=== PATIENT | female | born 1955 | race Caucasian/White ===

== ENCOUNTER 2021-03-26 11:31 | Outpatient (REF) | payer MEDICARE, OTHER, SELFPAY ==
[2021-03-26 12:30] LABS: Influenza A PCR NEGATIVE (Negative); Influenza B PCR NEGATIVE (Negative); Resp Syncy Virus RNA Qual PCR NEGATIVE (Negative); SARS COV2 PCR INHOUSE NEGATIVE (Negative)
== END 2021-03-26 11:32 | disposition home or self-care (01) ==
LOC: HO.LNP 11:31
PROVIDERS: Visit Provider Family Medicine
DX: Z20.822 Contact with and (suspected) exposure to COVID-19 (principal); B34.9 Viral infection, unspecified
CPT/HCPCS: 0241U

== ENCOUNTER 2021-04-22 13:56 | Outpatient (REF) | payer MEDICARE, OTHER, SELFPAY ==
[2021-04-22 18:44] LABS: MANUAL DIFF FLAG NO
[2021-04-22 18:49] LABS: Basophils Absolute Auto 0.1 X10*3/uL (0.0-0.2); Basophils Percent Auto 0.6 % (0-2); Eosinophils Absolute Auto 0.1 X10*3/uL (0.0-0.4); Eosinophils Percent Auto 0.8 % (0-4); Hematocrit 39.9 % (37-47); Hemoglobin 13.4 g/dl (12.0-16.0); Imm Gran Abs Auto 0.02 X10*3/uL (0.00-0.03); Imm Gran Pct Auto 0.3 % (0.0-0.4); Lymphocytes Absolute Auto 2.4 X10*3/uL (1.2-4.9); Lymphocytes Percent Auto 31.5 % (20-40); Mean Corpuscular HGB Conc 33.6 g/dl (31.0-35.0); Mean Corpuscular Hemoglobin 30.7 pg (27.0-33.0); Mean Corpuscular Volume 91.3 fL (80-98); Mean Platelet Volume 10.1 fL (9.4-12.3); Monocytes Absolute Auto 0.6 X10*3/uL (0.1-1.2); Monocytes Percent Auto 7.6 % (2-11); Neutrophils Absolute Auto 4.6 X10*3/uL (2.0-8.3); Neutrophils Percent Auto 59.2 % (45-73); Platelet Count 307 X10*3/uL (160-400); Red Blood Count 4.37 X10*6/uL (4.20-5.50); Red Cell Distribution Width 12.7 % (11.0-16.0); White Blood Count 7.7 X10*3/uL (4.8-10.8)
[2021-04-22 19:11] LABS: Alanine Aminotransferase 17 U/L (0-31); Albumin Level 4.2 g/dL (3.5-5.0); Alkaline Phosphatase 84 U/L (39-117); Anion Gap 13 (12-20); Aspartate Amino Transferase 19 U/L (5-31); Bilirubin Total 0.3 mg/dL (0.0-1.0); Blood Urea Nitrogen 10 mg/dL (9-16); C Reactive Protein 0.17 mg/dL (< or = 0.50); Calcium 9.6 mg/dL (8.4-10.2); Carbon Dioxide 27 mmol/L (22-29); Chloride 104 mmol/L (96-108); Estimated Glomerular Filt Rate > 60; Glucose Random 89 mg/dL (60-115); Iron 83 mcg/dL (30-160); Percent Iron Saturation 29 % (15-50); Potassium 3.7 mmol/L (3.3-5.1); Sodium 140 mmol/L (135-145); Total Iron Binding Capacity 290 mcg/dL (228-428); Total Protein 6.9 g/dL (6.5-8.0); Unsaturated Iron Binding 207 ug/dL
[2021-04-22 19:32] LABS: Erythrocyte Sedimentation Rate 5 MM/HR (0-20); Ferritin 151 ng/mL (10-250); Thyroid Stimulating Hormone 1.55 uIU/mL (0.32-4.0); Vitamin D 25-OH Total 52.8 ng/mL (>30)
[2021-04-22 19:42] LABS: Folate 13.1 ng/mL (> or = 4.0); Vitamin B12 398 pg/mL (200-900)
== END 2021-04-22 13:57 | disposition home or self-care (01) ==
LOC: HO.MANLDS 13:56
PROVIDERS: PCP Physician Assistant; Visit Provider Physician Assistant
DX: R53.83 Other fatigue (principal)
CPT/HCPCS: 36415; 80053; 82306; 82607; 82728; 82746; 83540; 84439; 84443; 85025; 85652; 86140

== ENCOUNTER 2023-03-23 09:40 | Outpatient (REF) | payer MEDICARE, OTHER, SELFPAY ==
[2023-03-23 13:05] LABS: MANUAL DIFF FLAG NO
[2023-03-23 13:26] LABS: Basophils Percent Auto 0.7 % (0-2); Eosinophils Absolute Auto 0.1 X10*3/uL (0.0-0.4); Eosinophils Percent Auto 1.8 % (0-4); Hemoglobin 13.8 g/dl (12.0-16.0); Imm Gran Abs Auto 0.01 X10*3/uL (0.00-0.03); Imm Gran Pct Auto 0.2 % (0.0-0.4); Lymphocytes Absolute Auto 1.9 X10*3/uL (1.2-4.9); Lymphocytes Percent Auto 35.1 % (20-40); Mean Corpuscular HGB Conc 32.9 g/dl (31.0-35.0); Mean Corpuscular Hemoglobin 30.5 pg (27.0-33.0); Mean Corpuscular Volume 92.7 fL (80.0-98.0); Mean Platelet Volume 10.5 fL (9.4-12.3); Monocytes Absolute Auto 0.5 X10*3/uL (0.1-1.2); Monocytes Percent Auto 9.5 % (2-11); Neutrophils Absolute Auto 2.9 x10*3/uL (2.0-8.3); Neutrophils Percent Auto 52.7 % (45-73); Platelet Count 285 X10*3/uL (160-400); Red Blood Count 4.53 X10*6/uL (4.20-5.50); Red Cell Distribution Width 12.9 % (11.0-16.0); White Blood Count 5.5 X10*3/uL (4.8-10.8)
[2023-03-23 14:00] LABS: Alanine Aminotransferase 15 U/L (0-31); Albumin Level 4.1 g/dL (3.5-5.0); Alkaline Phosphatase 78 U/L (39-117); Anion Gap 11 (12-20); Aspartate Amino Transferase 21 U/L (5-31); Bilirubin Total 0.3 mg/dL (0.0-1.0); Blood Urea Nitrogen 14 mg/dL (9-16); Calcium 9.7 mg/dL (8.4-10.2); Carbon Dioxide 29 mmol/L (22-29); Chloride 107 mmol/L (96-108); Cholesterol 201 mg/dL (<200); Estimated Glomerular Filt Rate > 60; Glucose Random 83 mg/dL (60-115); HDL Cholesterol 79 mg/dL (>40); LDL Cholesterol Calculated 111 mg/dL (<100); Potassium 4.5 mmol/L (3.3-5.1); Sodium 142 mmol/L (135-145); Triglycerides 59 mg/dL (<150)
[2023-03-23 14:03] LABS: Vitamin D 25-OH Total 111.1 ng/mL (>30)
== END 2023-03-23 09:41 | disposition home or self-care (01) ==
LOC: HO.MANLDS 09:40
PROVIDERS: Visit Provider Internal Medicine
DX: Z00.00 Encounter for general adult medical examination without abnormal findings (principal); M85.80 Other specified disorders of bone density and structure, unspecified site; E78.5 Hyperlipidemia, unspecified
CPT/HCPCS: 36415; 80053; 80061; 82306; 85025

== ENCOUNTER 2023-10-12 12:10 | Outpatient (REF) | payer MEDICARE, OTHER, SELFPAY ==
[2023-10-12 17:19] LABS: MANUAL DIFF FLAG NO
[2023-10-12 17:27] LABS: Basophils Absolute Auto 0.1 X10*3/uL (0.0-0.2); Basophils Percent Auto 0.7 % (0-2); Eosinophils Absolute Auto 0.1 X10*3/uL (0.0-0.4); Eosinophils Percent Auto 0.8 % (0-4); Hematocrit 43.5 % (37.0-47.0); Imm Gran Abs Auto 0.01 X10*3/uL (0.00-0.03); Imm Gran Pct Auto 0.1 % (0.0-0.4); Lymphocytes Absolute Auto 2.4 X10*3/uL (1.2-4.9); Lymphocytes Percent Auto 33.9 % (20-40); Mean Corpuscular HGB Conc 32.2 g/dl (31.0-35.0); Mean Corpuscular Volume 90.2 fL (80.0-98.0); Mean Platelet Volume 10.3 fL (9.4-12.3); Monocytes Absolute Auto 0.6 X10*3/uL (0.1-1.2); Monocytes Percent Auto 7.8 % (2-11); Neutrophils Absolute Auto 4.1 x10*3/uL (2.0-8.3); Neutrophils Percent Auto 56.7 % (45-73); Platelet Count 322 X10*3/uL (160-400); Red Blood Count 4.82 X10*6/uL (4.20-5.50); Red Cell Distribution Width 12.7 % (11.0-16.0); White Blood Count 7.2 X10*3/uL (4.8-10.8)
[2023-10-12 18:10] LABS: Alanine Aminotransferase 15 U/L (0-31); Albumin Level 4.4 g/dL (3.5-5.0); Alkaline Phosphatase 76 U/L (39-117); Anion Gap 11 (12-20); Aspartate Amino Transferase 19 U/L (5-31); Bilirubin Total 0.5 mg/dL (0.0-1.0); Blood Urea Nitrogen 16 mg/dL (9-16); Calcium 9.7 mg/dL (8.4-10.2); Carbon Dioxide 29 mmol/L (22-29); Chloride 104 mmol/L (96-108); Estimated Glomerular Filt Rate > 60; Glucose Random 82 mg/dL (60-115); Magnesium 2.3 mg/dL (1.6-2.6); Potassium 3.8 mmol/L (3.3-5.1); Sodium 140 mmol/L (135-145); Total Protein 7.5 g/dL (6.5-8.0)
[2023-10-12 18:29] LABS: Thyroid Stimulating Hormone 1.69 uIU/mL (0.32-4.0)
[2023-10-14 10:40] LABS: A phagocytophilum IgG <1:64 (<1:64); A phagocytophilum IgM <1:20 (<1:20)
[2023-10-14 20:19] LABS: Lyme Abs Screen <0.90 index
== END 2023-10-12 12:11 | disposition home or self-care (01) ==
LOC: HO.MANLDS 12:10
PROVIDERS: Visit Provider Physician Assistant
DX: G25.2 Other specified forms of tremor (principal)
CPT/HCPCS: 36415; 80053; 83735; 84439; 84443; 85025; 86617; 86618; 86666

== ENCOUNTER 2025-05-27 09:42 | Outpatient (REF) | payer MEDICARE, OTHER, SELFPAY ==
--- OUTSIDE RECORDS SUMMARY | 2025-05-27 11:08 | XMS_ITS | Clinical Summary ---
Author Organization [facility] Address [address] [facility] [address] [place] [id number] Phone Care Team Providers Care Shipping Order Clerk Name Role Phone Jose Malone Primary Care Provider [phone] Allergies Active Allergy Reactions Criticality Noted Date Comments Animal Dander 06/18/2024 Codeine 06/18/2024 Other Reaction(s): severe nausea Levofloxacin 06/18/2024 Other Reaction(s): heart race Methocarbamol-Aspirin 06/18/2024 Other Reaction(s): rash whole body Prednisone 06/18/2024 Other Reaction(s): could not function hands shaking and blurred vision Medications loratadine (CHILDREN'S CLARITIN) 5 mg chewable tablet Take 5 mg by mouth as needed. 4 Active fluticasone propionate (FLONASE) 50 mcg/actuation nasal spray 1 spray by Nasal route daily. Active ibuprofen (ADVIL) 200 MG tablet Take 400 mg by mouth. PRN 4 Active cholecalciferol (VITAMIN D3) 25 MCG (1,000 unit) tablet Take 50 mcg by mouth daily. Active magnesium L-lactate (MAGTAB) 84 mg TbER Take 84 mg by mouth daily. Active multivitamin with folic acid 400 mcg tablet Take 1 tablet by mouth daily. Active VITAMIN B COMPLEX ORAL Take 1 capsule by mouth daily. Active TURMERIC ORAL Take 1 capsule by mouth daily. Active MULTIVITAMIN ORAL Take 1 capsule by mouth daily. Active escitalopram oxalate (LEXAPRO) 5 MG tablet Take 5 mg by mouth daily. Active carbidopa-levodopa (SINEMET) 25-100 mg per tabletIndications: Parkinson's disease without dyskinesia or fluctuating manifestations Take 0.5 tablets by mouth 2 (two) times a day for 14 days, THEN 1 tablet 2 (two) times a day. 60 tablet 6 5 03/25/20 26 Active propranoloL (INDERAL LA) 80 mg 24 hr capsule Take 1 capsule (80 mg total) by mouth daily. 30 capsule 5 5 05/07/20 25 Discontin ued(No longer taking) Encounters Date Type Department Care Team Description 05/13/[address] [facility] Department of Neurology [address] [place] [address], [address] [facility], [address] [place] [address] Candice Guerin LICSW 05/07/2025 2:[address] [facility] Department of Neurology [address] [facility], 8th Floor, [address] [place] [address] Jennifer Dunbar MD Parkinson's disease without dyskinesia or fluctuating manifestations (Primary Dx) 03/20/[address] [facility] Department of Neurology [address] [facility], 8th Floor, [address] [place] [address] Candice Guerin LICSW 03/13/[address] [facility] Department of Neurology [address] [facility], 8th Floor, [address] [place] [address] Candice Guerin LICSW Social work appointment 03/11/2025 9:30 AM EDT Office Visit [facility] Department of Neurology [address] [facility], 8th Floor, [address] [place] [address] Jennifer Dunbar MD Parkinson's disease without dyskinesia or fluctuating manifestations (Primary Dx) from Last 3 Months Social History Tobacco Use Types Packs/Day Years Used Date Smoking Tobacco: Never Smokeless Tobacco: Never Tobacco Cessation:Counseling Given: Not Answered Education Answer Date Recorded Are you interested in more education? Not on betzy e 03/26/2024 Are you concerned about learning? Not on file 03/26/2024 No 03/26/2024 No 03/26/2024 Digital Access Answer Date Recorded No 03/26/2024 No 03/26/2024 Reliable internet access at home? Not on file 03/26/2024 Device with a working camera? Not on file Comments No Sex and Gender Information Value Date Recorded Sex Assigned at Not on file Legal Sex Female 9:54 PM EDT Gender Identity Not on file Sexual Orientation Not on file Last Filed Vital Signs Vital Sign Reading Time Taken Comments Blood Pressure 138/83 03/11/2025 9:14 AM EDT Pulse 80 03/11/2025 9:14 AM EDT Temperature 36.9 C (98.5 F) 03/11/2025 9:14 AM EDT Respiratory Rate - - Oxygen Saturation 97% 03/11/2025 9:14 AM EDT Inhaled Oxygen Concentration - - Weight 72 kg (158 lb 12.8 oz) 03/11/2025 9:14 AM EDT Height 161.3 cm (5' 3.5 ) 03/11/2025 9:14 AM EDT Body Mass Index 27.69 03/11/2025 9:14 AM EDT Plan of Treatment Upcoming Encounters Date Type Department Care Team (Late st Contact Info) Description 08/13/2025 1:[address] [facility] Department of Neurology [address] [facility], 8th Floor, [address] [place] [address] Jennifer Dunbar MD [address] [place] [phone] [email or web address] Health Maintenance Due Date Last Done Comments Adult Td,Tdap Booster 1956 LIPID PANEL 1956 DEPRESSION SCREENING 1968 HEPATITIS C SCREENING 02/26/1974 SCREENING FOR DIABETES 02/26/1991 MAMMOGRAM 1996 COLOGUARD 02/26/2001 COLONOSCOPY 02/26/2001 COLORECTAL CANCER SCREENING 02/26/2001 FIT TEST 02/26/2001 FOBT 02/26/2001 SIGMOIDOSCOPY 02/26/2001 VIRTUAL COLONOSCOPY 02/26/2001 PNEUMOCOCCAL VACCINES (50+ y ears) (1 of 1 - PCV) 02/26/2006 ZOSTER VACCINES (1 of 2) 02/26/2006 OSTEOPOROSIS SCREENING INITI AL (ONE-TIME) 02/26/2021 INFLUENZA VACCINE (#1) 2025 COVID-19 VACCINE ( - 2024-2 6 season) 2025 RSV VACCINE (1 - 1-dose 75+ series) 02/26/2031 SMOKING STATUS SCREENING (On ce After 26 Yrs) Completed 03/11/2025 HEPATITIS A VACCINES Aged Out No long er eligible based on patient's age to complete this topic HIB VACCINES Aged Out No longer eligi ble based on patient's age to complete this topic MENINGOCOCCAL VACCINES (ACWY) Aged Out No longer eligible based on patient's age to complete this topic MENINGOCOCCAL VACCINES (B) Aged Out N o longer eligible based on patient's age to complete this topic Medical Devices Not on file Insurance MEDICARE PART A & B [facility] [employer] MEDICARE SUPPLEMENT MEDICARE PART A & B [employer] MEDICARE SUPPLEMENT MEDICARE PART A & B [employer] MEDICARE SUPPLEMENT MEDICARE PART A & B [facility] [employer] MEDICARE SUPPLEMENT MEDICARE PART A & B [facility] [employer] MEDICARE SUPPLEMENT MEDICARE PART A & B [facility] [employer] MEDICARE SUPPLEMENT Care Teams Shipping Order Clerk Relationship Specialty Start Date End Date Jose Malone DO [email or web address] PCP - General Internal Medicine 03/26/24 Additional Source Comments The information contained in this document represents components of the legal health record. It is not the complete legal health record.[facility]
--- OUTSIDE RECORDS SUMMARY | 2025-05-27 11:08 | XMS_ITS | Continuity of Care Document ---
Author Organization [facility] Address [address] [facility] [place] [address] [place] [address] Assessment No assessment recorded. Plan of Treatment Reminders Order Date Submit Date Provider Last Modified By Organization Details Last Modified Time Details Appointments ANNUAL EXAM 2024 09:00A M SURYA VIDALES Not available Not available Not available ANNUAL EXAM 2025 09:00A M SURYA VIDALES Not available Not available Not available Lab CMP, serum or plasma 2024 025 [facility], [address] [place] [address], [id number], 05/27/2025 09:32:59 CBC w/ auto diff 2024 025 [facility], [address] [place] [address], [id number], 05/27/2025 09:32:59 TSH + free T4, serum 2024 025 [facility], [address] [place] [address], [id number], 05/27/2025 09:32:59 hemoglobi n A1c, QN, blood 2024 025 [facility], [address] [place] [address], [id number], 05/27/2025 09:32:59 lipid panel, blood 2024 025 [facility], [address] [place] [address], [id number], 05/27/2025 09:32:59 vitamin D, 25-hydrox y, total, serum 2024 025 [facility], [address] [place] [address], [id number], 05/27/2025 09:32:59 Referral None recorded. Procedures None recorded. Surgeries None recorded. Imaging None recorded. Medication Orders None recorded. Patient TargetsNo targets recorded. Patient InstructionsNo instructions recorded. Reason for Referral None Reported. Problems Name Problem SNOMED Code Status Onset Date Resolution Date Notes Provider Name and Address Organization Details Recorded Time Cholecyst itis 85816060 Active 2019 Marilu bowers [facility] 0 16:46:07 History of chest pain 386630742686 75805 Active 2019 Marilu bowers [facility] 0 08:30:06 Inflammat ion of sacroilia c joint 80195637 Active 2021 Jose Malone, DO [address] [place] [address], [phone], [facility] 2 11:32:03 Osteopeni a 190037669 Active 2022 Jose Malone DO [address] [place] [address], [phone], [facility] 3 09:32:06 Sleep apnea 80317387 Active 2022 Jose Malone DO [address] [place] [address], [phone], [facility] 3 14:13:26 Resting tremor 57823519 Active 2023 SURYA VIDALES [address] [place] [address], [address], [facility] 4 11:47:01 Blurring of visual image 680827799 Active 2023 SURYA VIDALES [address] [place], [address], [facility] 4 11:47:11 Parkinson ism 76175342 Active 2023 SURYA VIDALES [address] [place] [address], [address], [facility] 5 11:01:17 Spinal stenosis of lumbar region 47112339 Active 2023 SURYA VIDALES [address] [place] [address], [address], [facility] 4 15:09:51 Tremor 14093798 Active 2023 SURYA VIDALES [address] [place] [address], [address], [facility] 4 09:38:24 Degenerat meg lumbar spinal stenosis 083441645 Active 2023 SURYA VIDALES [address] [place] [address], [address], [facility] 4 10:05:31 Pain of bilateral hip joints 712334468905 88694 Active 2023 SURYA VIDALES [address] [place] [address], [address], [facility] 4 09:48:04 Thoracic back pain 312019946 Active 2023 SURYA VIDALES [address] [place] [address], [address], [facility] 4 09:46:56 Essential tremor 061652993 Active 2023 SURYA VIDALES [address] [place] [address], [address], [facility] 5 10:14:34 Anxiety 83601276 Active 2024 SURYA VIDALES [address] [place] [address], [address], [facility] 5 14:05:05 Problem Notes None recorded. Procedures Surgical History Date Name Laterality Status Provider Name and Address Organization Details Recorded Time 0 Date of Last Pap Smear completed Jodie Lb [facility] 05/06/2020 09:07:15 9 Most Recent Mammogram completed [facility] 12/31/2019 16:45:22 3 colonoscopy completed [facility] 01/01/2020 08:33:47 Unlisted procedure shoulder completed [facility] 12/31/2019 16:48:19 Imaging Results None recorded. Procedure Notes None recorded. Medical Equipment None Reported. Allergies Allergen ID Allergen Name Allergen Category Reaction Reaction Severity Criticality Documentation Date Start Date Code Code System Note Provider Name and Address Organization Details Recorded Time 3914 Levaquin medicatio n Not available Not available Not available 01/01/202004506 2 RxNorm Gi upset , Heart racin [facility] 08:13[facility]23 3915 Robaxin medicatio n rash Not available Not available 01/01/2020 5 RxNorm [facility] 0 08:13:40 3916 Biaxin medicatio n Not available Not available Not available 01/01/202089095 9 RxNorm GI upset [facility] 0 08:14:02 3917 acetamino phen / oxycodone medicatio n vomiting Not available Not available 01/01/202060969 3 RxNorm Room spinn ing Marilucayetano [facility] 0 08:14:24 3919 codeine medicatio n dizziness vomiting Not available Not available Not available 01/01/2020 2670 RxNorm [facility] 0 10:33:17 3920 prednison e medicatio n dizziness vomiting Not available Not available Not available 01/01/2020 8640 RxNorm [facility] 0 10:33:46 Medications Name Sig Start Date Stop Date Status Note LastModified by Organization Details LastModified Time tizanidine 2 mg tablet TAKE 1 TABLET BY MOUTH TWICE DAILY FOR 14 DAYS 04/17 completed Not Available Not Available Not Available ofloxacin 0.3 % eye drops 03/01 completed Not Available Not Available Not Available tizanidine 4 mg tablet TAKE 1 TABLET BY MOUTH EVERY 6 HOURS DIRECTED 04/17 completed Not Available Not Available Not Available propranolol ER 60 mg capsule,24 hr,extended release 11/14 completed Not Available Not Available Not Available topiramate 25 mg tablet TAKE 1 TABLET BY MOUTH EVERY DAY FOR 7 DAYS 02/06 completed Not Available Not Available Not Available ondansetron 8 mg disintegrat ing tablet TAKE 1 TABLET BY MOUTH EVERY 8 HOURS IF NEEDED FOR NAUSEA FOR 7 DAYS 04/22 completed Not Available Not Available Not Available oxycodone-a cetaminophe n 5 mg-325 mg tablet 04/22 completed Not Available Not Available Not Available propranolol 10 mg tablet take one tab TID 08/07 completed Not Available Not Available Not Available ropinirole 0.25 mg tablet TAKE 1 TABLET BY MOUTH EVERY DAY. DO NOT DRIVE IF DROWSY 01/08 completed Not Available Not Available Not Available meclizine 25 mg tablet TAKE 1 TABLET BY MOUTH TWICE DAILY NEEDED FOR MOTION SICKNESS 04/22 completed Not Available Not Available Not Available propranolol ER 80 mg capsule,24 hr,extended release 05/27 completed Not Available Not Available Not Available methylpredn isolone 4 mg tablets in a dose pack TAKE DIRECTED ON PACKAGE FOR 6 DAYS WITH FOOD 01/08 completed Not Available Not Available Not Available carbidopa 25 mg-levodopa 100 mg tablet TAKE 1/2 TABLET BY MOUTH TWICE DAILY FOR 14 DAYS THEN TAKE 1 TABLET BY MOUTH TWICE DAILY active Not Available Not Available No t Available ipratropium bromide 21 mcg (0.03 %) nasal spray USE 2 SPRAYS IN EACH NOSTRIL TWICE DAILY 05/27 completed Not Available Not Available Not Available amoxicillin 875 mg-potassiu m clavulanate 125 mg tablet TAKE 1 TABLET BY MOUTH TWICE DAILY FOR 10 DAYS 10/11 completed Not Available Not Available Not Available tobramycin 0.3 %-dexametha sone 0.1 % eye drops,suspe nsion SHAKE LIQUID AND INSTILL 1 DROP IN BOTH EYES THREE TIMES DAILY FOR 5 DAYS THEN STOP 05/27 completed Not Available Not Available Not Available magnesium 200 mg tablet Take 2 tablets every day by oral route. 05/27 completed Not Available Not Available Not Available Allergy Relief (loratadine ) 10 mg tablet Take 1 tablet every day by oral route. active Not Available Not Available No t Available escitalopra m 5 mg tablet TAKE 1 TABLET BY MOUTH EVERY DAY DIRECTED 05/27 completed Not Available Not Available Not Available Vitamin D 6000 iu qd active Not Available Not Available No t Available Tumersaid active Not Available Not Pam ilable Not Available Vitals Date Recorded Body height Body mass index (BMI) Body weight Oxygen saturation Oxygen saturation in Arterial blood by Pulse oximetry Heart rate Systolic And Diastolic Provider Name and Address Organization Details Last Updated DateTime 167.64 cm 25.2 kg/m2 00951.4 1 g 96 % 96 % 67 /min 136/70 mm[Hg] Alexandria Cooper [facility] 5 09:02:48 Social History Question Answer Notes LastModified by Organizat ion Details LastModified Time Tobacco Smoking Status [facility] [place] 01/01/2020 08:31:54 What Was The Date Of Your Most Recent Tobacco Screening? 05/27/2025 [email or web address] Information not available 05/27/2025 Sex: Unknown Functional Status Question Answer Note LastModified by Organization D etails LastModified Time Do you or have you ever used any other forms of tobacco or nicotine? No [email or web address] Information not available 03/01/2023 Mental Status None recorded. Family History Relationship Description Onset Age of this Age Resolved Age Notes LastModified by Organization Details LastModified Time Mother Hypertensive disorder sbucko Not available 2019 16:57:03 Mother Hyperthyroid ism sbucko Not available 2019 16:57:16 Mother Degenerative disorder of macula sbucko Not available 2019 16:57:39 Mother Poor short-term memory sbucko Not available 2019 16:58:00 Father Coronary arterioscler osis sbucko Not available 2019 16:58:11 Father Cerebrovascu lar accident sbucko Not available 16:58:21 Father Rupture of aorta sbucko Not available 2019 16:58:34 Sister Arthritis sbucko Not available 01/01/2020 08:15:25 Sister Breast lump Pre cancer sbucko Not available 01/01/2020 08:16:17 Sister Hypertensive disorder sbucko Not available 2019 08:16:38 Sister Developmenta l delay sbucko Not available 2019 08:16:55 Sister Sciatica sbucko Not available 0 01/01/2020 08:17:08 Brother Hypertensive disorder sbucko Not available 2019 08:17:21 Brother Spinal stenosis sbucko Not available 2019 08:17:43 Brother Hypercholest erolemia sbucko Not available 2019 08:18:15 Medical History No medical history recorded. Gynecological History Statement/Question Response Date of Last Pap Smear 04/23/2020 Most Recent Mammogram 05/23/2019 Obstetrics History GPAL:G 0 P 0 0 0 0 Immunizations Vaccine Type Date Status Note Provider Nam e and Address Organization Details Recorded Time COVID-19, mRNA, LNP-S, PF, 100 mcg/0.5mL dose or 50 mcg/0.25mL dose 10/08/[address] [facility] 04/22/2021 13:41:12 COVID-19, mRNA, LNP-S, PF, 100 mcg/0.5mL dose or 50 mcg/0.25mL dose 11/05/2020 completed Candida bowers [place] [facility] 04/22/2021 13:41:21 Past Encounters Encounter ID Performer Location Encounter Start Date Encounter Closed Date Diagnosis/Indication Diagnosis SNOMED-CT Code Diagnosis ICD10 Code Diagnosis IMO Codes Diagnosis Note [id number] Jose Malone DO [facility] [address] [facility],[place] [address] 05/27/2025 08:46:58 05/27/2025 09:33:07 Depression screening 775366764 Z13.31 0 negative General ex amination of patient 749808093 Z00.00 538020 BP is excellent At increas ed risk for falls 325188404 Z91.81 3704019 mild Health Concerns Section Related Observation LastModified by Organization Detai ls LastModified Time None Recorded Concern Status LastModified by Organization Details LastModified Time None Recorded Payers Encounter Date Sequence Insurance Name Policy Number Policy Means Covered Member ID Means Member ID Guarantor Name 05/27/2025 2 [facility] ([facility] [id number] Jarrod Parra [id number] Gina Parra 05/27/2025 1 [place]IC[place]: [employer] Gina Parra [id number] Gina Parra Notes Date Note Type Note Provider Name a nd Address Organization Details Recorded Time 5 text/html Annual WellnessReported by PatientSocial/Behavio ral HistoryFor diet and nutrition, patient reportshealthy diet,discussed vitamin and supplement use,discussed portion control,discussed maintaining calcium balance, anddiscussed diet improvement. For fracture risk, patient reportsno history of fractures,no recent explained fracture,no sudden unexplained fractures, andno previous musculoskeletal injuries. For physical activity, patient reportsexercises on a regular basis,recent increase in physical activity, andgood physical condition. For additional lifestyle factors, patient reportsno tobacco useanddrinks alcohol (mild-moderate).Menta l Status:For depression risk, patient reportsnever feels sad, empty, or tearful,no loss of interest in activities,no significant changes in weight,no sleep disturbances or insomnia,no agitation,no loss of energy,no feelings of worthlessness or guilt,no thoughts of suicide,no history of depression, andno history of mood disorders.Functional AbilityFor hearing, patient reportsno loss of hearing. For vision, patient reportsno vision problems. the patient reports that she is doing well overallshe has been doing the PT and an exercise routine at the for Parkinson's patient the patient reports that she talked to the movement specialist > she agreed to trial off the levadopa and see if she notices a difference if her symptomsthey talked about using it as needed which she is going to try the patient has significant SURYA VIDALES [address] [facility], [place], [address], [facility] 05/27/2025 09:35:53 OBGyn Episode No OBEpisode recorded.
--- OUTSIDE RECORDS SUMMARY | 2025-05-27 11:08 | XMS_ITS | Data Portability ---
Author Organization [facility], Telehealth Patient Home Address [address] [place] [address] Assessment No assessment recorded. Plan of Treatment Reminders Order Date Submit Date Provider Last Modified By Organization Details Last Modified Time Details Appointments ANNUAL EXAM 2024 09:00A SURYA REDMAN Not available Not available Not available ANNUAL EXAM 2025 09:00A M SURYA VIDALES Not available Not available Not available Lab CMP, serum or plasma 2024 025 [facility], [address] [place] [address], [id number], 05/27/2025 09:32:59 CBC w/ auto diff 2024 025 [facility], [address] [place] [address], [id number], 05/27/2025 09:32:59 TSH + free T4, serum 2024 025 [facility], [address] [place] [address], [id number], 05/27/2025 09:32:59 hemoglobi n A1c, QN, blood 2024 025 [facility], [address] [place] [address], [id number], 05/27/2025 09:32:59 lipid panel, blood 2024 025 [facility], [address] [place] [address], [id number], 05/27/2025 09:32:59 vitamin D, 25-hydrox y, total, serum 2024 025 [facility], [address] [place] [address], [id number], 05/27/2025 09:32:59 Referral None recorded. Procedures None recorded. Surgeries None recorded. Imaging None recorded. Medication Orders None recorded. Patient TargetsNo targets recorded. Patient InstructionsNo instructions recorded. Reason for Referral None Reported. Problems Name Problem SNOMED Code Status Onset Date Resolution Date Notes Provider Name and Address Organization Details Recorded Time Cholecyst itis 13275214 Active 2019 Marilu bowers [facility] 0 16:46:07 History of chest pain 372771409537 71994 Active 2019 Marilu bowers [facility] 0 08:30:06 Inflammat ion of sacroilia c joint 73264069 Active 2021 Jose Malone, [address], [address], [facility] 2 11:32:03 Osteopeni a 941194770 Active 2022 Jose Malone DO [address] [place] [address], [address], [facility] 3 09:32:06 Sleep apnea 51140900 Active 2022 Jose Malone DO [address] [place] [address], [address], [facility] 3 14:13:26 Resting tremor 75973743 Active 2023 SURYA VIDALES [address] [place] [address], [address], [facility] 4 11:47:01 Blurring of visual image 665178860 Active 2023 SURYA VIDALES [address] [place], [address], [facility] 4 11:47:11 Parkinson ism 44671206 Active 2023 SURYA VIDALES [address] [place], [address], [facility] 5 11:01:17 Spinal stenosis of lumbar region 69736303 Active 2023 SURYA VIDALES [address] [place], [address], [facility] 4 15:09:51 Tremor 65156517 Active 2023 SURYA VIDALES [address] [place] [address], [address], [facility] 4 09:38:24 Degenerat meg lumbar spinal stenosis 419952832 Active 2023 SURYA VIDALES [address] [place] [address], [address], [facility] 4 10:05:31 Pain of bilateral hip joints 552555255996 24751 Active 2023 SURYA VIDALES [address] [place] [address], [address], [facility] 4 09:48:04 Thoracic back pain 207244405 Active 2023 SURYA VIDALES [address] [place] [address], [address], [facility] 4 09:46:56 Essential tremor 600594910 Active 2023 SURYA VIDALES [address] [place] [address], [address], [facility] 5 10:14:34 Anxiety 04884683 Active 2024 SURYA VIDALES [address] [place] [address], [address], [facility] 5 14:05:05 Problem Notes None recorded. Procedures Surgical History Date Name Laterality Status Provider Name and Address Organization Details Recorded Time 0 Date of Last Pap Smear completed Jodie Lb [facility] 05/06/2020 09:07:15 9 Most Recent Mammogram completed [facility] 12/31/2019 16:45:22 3 colonoscopy completed [facility] 01/01/2020 08:33:47 Unlisted procedure shoulder completed [facility] 12/31/2019 16:48:19 Imaging Results None recorded. Procedure Notes None recorded. Medical Equipment None Reported. Allergies Allergen ID Allergen Name Allergen Category Reaction Reaction Severity Criticality Documentation Date Start Date Code Code System Note Provider Name and Address Organization Details Recorded Time 3914 Levaquin medicatio n Not available Not available Not available 01/01/202007647 2 RxNorm Gi upset , Heart racin g [facility] 0 08:13:23 3915 Robaxin medicatio n rash Not available Not available 01/01/2020 5 RxNorm Mar[address] [facility] 0 08:13:40 3916 Biaxin medicatio n Not available Not available Not available 01/01/202090707 9 RxNorm GI upset Marilucayetano [facility] 0 08:14:02 3917 acetamino phen / oxycodone medicatio n vomiting Not available Not available 01/01/202008718 3 RxNorm Room spinn ing Marilucayetano [facility] 0 08:14:24 3919 codeine medicatio n dizziness vomiting Not available Not available Not available 01/01/2020 2670 RxNorm Marilucayetano [facility] 0 10:33:17 3920 prednison e medicatio n dizziness vomiting Not available Not available Not available 01/01/2020 8640 RxNorm Marilucayetano [facility] 0 10:33:46 Medications Name Sig Start Date [...] height Body mass index (BMI) Body weight Heart rate Oxygen saturation Oxygen saturation in Arterial blood by Pulse oximetry Systolic And Diastolic Provider Name and Address Organization Details Last Updated DateTime 5 167.64 cm 25.9 kg/m2 78593.5 8 g 74 /min 97 % 97 % 140/88 mm[Hg] Gia Phelps [facility] 5 10:07:23 Date Recorded Body height Body mass index (BMI) Body weight Heart rate Oxygen saturation Oxygen saturation in Arterial blood by Pulse oximetry Systolic And Diastolic Provider Name and Address Organization Details Last Updated DateTime 5 167.64 cm 25.8 kg/m2 07083.7 8 g 78 /min 97 % 97 % 130/80 mm[Hg] Siomara Brink [facility] 5 09:46:47 Date Recorded Body height Body mass index (BMI) Body weight Heart rate Oxygen saturation Oxygen saturation in Arterial blood by Pulse oximetry Systolic And Diastolic Provider Name and Address Organization Details Last Updated DateTime 5 167.64 cm 25.7 kg/m2 62663.9 1 g 65 /min 97 % 97 % 144/78 mm[Hg] Gia Phelps [facility] 5 09:35:22 Date Recorded Body height Body mass index (BMI) Body weight Heart rate Oxygen saturation Oxygen saturation in Arterial blood by Pulse oximetry Systolic And Diastolic Provider Name and Address Organization Details Last Updated DateTime 5 167.64 cm 25.7 kg/m2 65216.1 9 g 66 /min 98 % 98 % 128/70 mm[Hg] SURYA VIDALES [address] [place], [address], [facility] 10:23:28 Date Recorded Body height Body mass index (BMI) Body weight Oxygen saturation Oxygen saturation in Arterial blood by Pulse oximetry Heart rate Systolic And Diastolic Provider Name and Address Organization Details Last Updated DateTime 167.64 cm 25.2 kg/m2 16747.4 1 g 96 % 96 % 67 /min 136/70 mm[Hg] Alexandria Cooper [facility] 09:02:48 Social History Question Answer Notes LastModified by Organizat ion Details LastModified Time Tobacco Smoking Status Never [facility]/01/2020 08:31:54 What Was The Date Of Your Most Recent Tobacco Screening? 05/27/2025 [email or web address] Information not available 05/27/2025 Sex: Unknown Functional Status Question Answer Note LastModified by Organization D etails LastModified Time Do you or have you ever used any other forms of tobacco or nicotine? No [email or web address] Information not available 03/01/2023 Mental Status None [...] dose or 50 mcg/0.25mL dose 10/08/2020 completed Candida bowers [facility] 04/22/2021 13:41:12 COVID-19, mRNA, LNP-S, PF, 100 mcg/0.5mL dose or 50 mcg/0.25mL dose 11/05/2020 completed Candida bowers [facility] 04/22/2021 13:41:21 Past Encounters Encounter ID Performer Location Encounter Start Date Encounter Closed Date Diagnosis/Indication Diagnosis SNOMED-CT Code Diagnosis ICD10 Code Diagnosis IMO Codes Diagnosis Note [id number] Jose Malone [facility] [address] [facility],[place] [address] 01/01/2020 10:21:48 01/01/2020 11:23:34 Inflammation of sacroiliac joint 18405493 M46.1 doing well now, stable may need imaging in the future Low back pain 740636382 M54.5 chronic Sciatica 80374843 M54.31 flare of numbness and tingling into heel of the right side [id number] Jose Malone [facility] [address] [facility], [place] [address] 04/22/2021 13:21:44 04/22/2021 14:33:23 Vertigo 115456309 R42 will start with blood work Fatigue 96868521 R53.83 will fu with lab work up for headaches and fatigue [id number] Jose Malone [facility] [address] [facility], [place] [address] 02/17/2022 11:23:16 02/17/2022 12:44:33 Active or passive immunization 172741152 Z23 advised due for Tdap and shingles will consider Adult heal th examination 480729956 Z00.00 Inflammati on of sacroiliac joint 11078960 M46.1 has had treatment surg for the L4-5 and has been good ever since [id number] Jose Malone [facility] [address] [facility], [place] [address] 03/01/2023 08:54:28 03/01/2023 10:16:39 Active or passive immunization 580803461 Z23 advised due for Tdap and shingles will consider Adult heal th examination 272288374 Z00.00 History of chest pain 16 57723923 9515733 Z87.898 gone Inflammati on of sacroiliac joint 74335510 M46.1 has had treatment surg for the L4-5 and has been good ever since Osteopenia 720726210 M85 .80 [id number] Jose Malone [facility] [address] [facility], [place] [address] 10/12/2023 11:03:47 10/12/2023 15:00:34 Inflammation of sacroiliac joint 28284076 M46.1 stable Resting tremor 94885691 G25.2 add work up for lab work r/o and also needs MRI brain and spine Blurring o f visual image 045029923 H53.8 will fu with eye doctor next week for exam [id number] Jose Malone [facility] [address] [facility], ite [facility] [place] [address] 11/08/2023 08:53:22 11/08/2023 10:36:14 Spinal stenosis of lumbar region 00757181 M48.[address] Colindres Resting tremor 13678268 G25.2 add work up for lab work r/o and also needs MRI brain and spine [id number] Jose Malone [facility] [address] [facility], [place] [facility] [place] [address] 01/09/2024 09:18:49 01/09/2024 14:08:25 Depression screening 613034576 Z13.31 0 negative Tremor 49385545 G25.2 will set up with topimax for a week trial to see if it helps some of the symptoms Resting tremor 70298211 G25.2 add work up for lab work r/o and also needs MRI brain and spine Spinal nathanael nosis of lumbar region 35004752 M48.[address] Canales after she talks to neurologis t [id number] Jose Malone [facility] [address] [facility], [place] [address] 02/07/2024 09:43:06 02/08/2024 13:51:11 Resting tremor 54326730 G25.2 add work up for lab work r/o and also needs MRI brain and spine Degenerati ve lumbar spinal stenosis 622983922 M48.061 will have her f/u with Dr. 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 ?still working up neuro causes instead of psychologi terry causes [id number] Jose Malone [facility] [address] [facility] [address], [place] [address] 04/17/2024 09:25:47 04/17/2024 10:52:14 Parkinsonism 53563491 G20.B2 found [address] for an [place] in [place] where she will bewill try getting her scheduled Thoracic back pain 27548 8004 M54.6 will set up with XR thoracichi ps were normal, lumbar spine has been told is not the issues by two neurosurge ons [id number] Jose Malone [facility] [address] [facility] [address],[place] [address] 05/09/2024 09:07:05 05/09/2024 09:44:50 Active or passive immunization 412978300 Z23 advised Adult heal th examination 423670103 Z00.00 BP is excellent [id number] Jose Malone [facility] [address] [facility] [address],[place] [address] 06/25/2024 10:07:48 06/25/2024 10:50:44 Essential tremor 077197907 G25.0 will continue on propranolo l as advisedrec bartolome getting a name the specialist Isaiah ve lumbar spinal stenosis 040985185 M48.061 will have her f/u with Dr. Canales for a surgical consult [id number] Jose Malone [facility] [address] [facility] [address],[place] [address] 08/07/2024 08:59:17 08/07/2024 10:10:25 Degenerative lumbar spinal stenosis 713753305 M48.061 will send out consult for this case for second opinion Essential tremor 6175074 09 G25.0 will fu with her specialist 6 mos [id number] Jose Malone [facility] [address] [facility] [address],[place] [address] 09/07/2024 10:11:33 09/07/2024 10:45:51 Degenerative lumbar spinal stenosis 291792106 M48.061 will send out consult for this case for second opinionpat ient agreed to referral, referral sent Essential tremor 4071486 09 G25.0 waiting on reply from movement specialist after d/c the propranolo l Sleep apnea 16903123 G47 .33 does not tolerate [id number] Jose Malone [facility] [address] [facility], [place] [facility] [place] [address] 10/09/2024 09:56:16 10/09/2024 10:29:59 Screening mammography 49569218 Z12.31 will set up with screening Spinal nathanael nosis of lumbar region 55910588 M48.061 will be having surgery with Dr. Blas Lui Resting tremor 94231890 G25.2 will see if the surgery helps alleviate that tremor [id number] Jose Malone [facility] [address] [facility],[place] [address] 11/14/2024 09:43:46 11/14/2024 10:41:56 Depression screening 148093329 Z13.31 0 negative Degenerati ve lumbar spinal stenosis 324860941 M48.061 pain improved Inflammati on of sacroiliac joint 90486622 M46.1 stable Resting tremor 69115298 G25.2 will fu after movement specialist [id number] Jose Malone [facility] [address],[facility] [place] [address] 12/21/2024 09:55:36 12/21/2024 15:01:30 Depression screening 894331760 Z13.31 0 negative Essential tremor 3071960 09 G25.0 30180 will restart the propranolo l ER 80 mghas it at homeif that isn't helping, with Parkinsonism 24689585 G2 0.B2 ?from neurologys till working that out [id number] Jose Malone [facility] [address] [facility],[place] [address] 02/11/2025 09:35:29 02/11/2025 14:06:39 Parkinsonism 55273792 G20.B2 ?from neurologys till working that out Spinal nathanael nosis of lumbar region 70447212 M48.061 will be having surgery with Dr. Blas Lui Resting tremor 19663737 G25.2 will fu after movement specialist [id number] Jose Malone [facility] [address] [facility], [address] [facility] [place] [address] 03/15/2025 09:27:21 03/15/2025 10:31:40 Depression screening 297378168 Z13.31 0 negative Spinal nathanael nosis of lumbar region 47343615 M48.061 will be having surgery with Dr. Blas Lui Parkinsonism 51065655 G2 0.B2 onapgo is the newer drug for more advanced parkinson' s [id number] [facility] [address] [facility] [address],[place] [address] 04/15/2025 10:11:14 04/15/2025 16:44:48 Depression screening 641533748 Z13.31 0 negative Parkinsonism 97878485 G2 0.B2 onapgo is the newer drug for more advanced parkinson' s [id number] Jose Malone [facility] [address] [facility] [address],[place] [address] 05/27/2025 08:46:58 05/27/2025 09:33:07 Depression screening 062789671 Z13.31 0 negative General ex amination of patient 082756771 Z00.00 437708 [facility] 076900908 Z91.81 8157436 mild Health Concerns Section Related Observation LastModified by Organization Detai ls LastModified Time None Recorded Concern Status LastModified by Organization Details LastModified Time None Recorded Advance Directives Directive None Recorded Payers Insurance Date Sequence Insurance Name Policy Number Policy Emans Covered Member ID Means Member ID Guarantor Name 05/24/2025 2 [facility] [id number] Jarrod Parra [id number] Gina Romanson 05/24/2025 1 MEDICARE [place]: [facility] Gina Parra [id number] Gina Parra Notes Date Note Type Note Provider Name a nd Address Organization Details Recorded Time 5 text/html ROS as noted in the HPI f/u neuro the patient saw neurologist for her 6 mos f/uthe patient reports that she was told arm stayed close to her arm without twisting (right side) has been since she was youngthe patient reports that she ?parkinson'sthe patient reports that she is having a RITA scan the patient reports that she is doing well after her back surgery, a month out, has PT coming it up the patient reports that the tremors are getting worse in her legsthe patient notes its impacting her function will f/u with patient after her RITA scanwants to restart the propranolol, will have her do that and hold prior to RITA scan, see it helps with the anxiety and tremorsmay need like an ativan or xanax for anxiety for her anxiety SURYA VIDALES [address] [facility], [place], [address], [facility] 12/21/2024 10:26:05 5 text/html ROS as noted in the HPI 12/21/24 appt: the patient saw neurologist for her 6 mos f/uthe patient reports that she was told arm stayed close to her arm (not a normal gait) without twisting (right side) has been since she was youngthe patient reports that she was diagnosed with ?parkinson's (or at least they are returning to that theory)the patient reports that she is having a RITA scan through neuro to confirm diagnosis the patient reports that she is doing well after her back surgery, a month out, has PT coming it up the patient reports that the tremors are getting worse in her legsthe patient notes its impacting her function will f/u with patient after her RITA scanwants to restart the propranolol, will have her do that and hold prior to RITA scan, see it helps with the anxiety and tremorsmay need like an ativan or xanax for anxiety for her anxiety 02/11/25:the patient had her RITA scanthe patient reports that she was told by the movement specialist that she has parkinson's based on RITA scan resultsprevious brain imaging was also normal so no other reasons found outside of this to explain tremors her back is doing wellthe patient reports that the movement specialist hasn't got back to her since discussing the scans with her neuro, she sent her a message afterdoes have an appt coming up the patient will be started on a medication most likely, she is on the lexaprothe patient may need to be switched off due to mild interaction with carbidopa but will decide after she sees neuro SURYA VIDALES [address] [facility], [place], [address], [facility] 02/11/2025 10:23:28 5 text/html ROS as noted in the HPI 1 mos f/u 12/21/24 appt: the patient saw neurologist for her 6 mos f/uthe patient reports that she was told arm stayed close to her arm (not a normal gait) without twisting (right side) has been since she was youngthe patient reports that she was diagnosed with ?parkinson's (or at least they are returning to that theory)the patient reports that she is having a RITA scan through neuro to confirm diagnosis the patient reports that she is doing well after her back surgery, a month out, has PT coming it up the patient reports that the tremors are getting worse in her legsthe patient notes its impacting her function will f/u with patient after her RITA scanwants to restart the propranolol, will have her do that and hold prior to RITA scan, see it helps with the anxiety and tremorsmay need like an ativan or xanax for anxiety for her anxiety 02/11/25:the patient had her RITA scanthe patient reports that she was told by the movement specialist that she has parkinson's based on RITA scan resultsprevious brain imaging was also normal so no other reasons found outside of this to explain tremors her back is doing wellthe patient reports that the movement specialist hasn't got back to her since discussing the scans with her neuro, she sent her a message afterdoes have an appt coming up the patient will be started on a medication most likely, she is on the lexaprothe patient may need to be switched off due to mild interaction with carbidopa but will decide after she sees neuro 03/15/25 appt: the patient is doing okayshe was started on the carbidopa and levadopathe patient was started on low dose the patient reports that she has been doing well lexapro, no side effects on the medication will cont the patient has been doing her PT for her lumbar spinethe patient did also get a PT order from the movement specialist for neurological PT for the parkinson's the patient reports that her mood has been okay so far, now knowingthe patient is not far enough along to start on medication that was recently released the patient and I discussed the stimulator which wouldn't be recommended until later stages or repetitive the patient is otherwise doing well has to be have routine eye exams due to the fam hx of SURYA JOHNSON [address] [place], [address], [facility] 03/15/2025 10:04:15 5 text/html ROS as noted in the HPI 1 mos f/u the patient is doing okaythe patient is still not noticing the difference of the carvedilol dosing at the full tablet, about as much relief as he got with the propranolol the patient did stop the lexapro, didn't notice a difference for the depression/anxietythe patient and I discussed symptoms, the patient may d/c the med to see if there is any noticeable difference being on or off it has a phone call with the movement specialistnot sure if she wants to continuehas concerns about dyskinesia development being on the medication ?switch to amantadine or altpt will think about and fu after she sees the movement specialist SURYA VIDALES [address] [place], [address], [facility] 04/15/2025 11:11:40 5 text/html Annual WellnessReported by PatientSocial/Behavio ral [...] try the patient has significant SURYA VIDALES [address] [place] [address], [place], [place], [id number], [place] [facility] 05/27/2025 09:35:53 OBGyn Episode No OBEpisode recorded.
[2025-05-27 13:30] LABS: MANUAL DIFF FLAG NO
[2025-05-27 13:46] LABS: Hematocrit 39.5 % (37.0-47.0); Hemoglobin 13.0 g/dl (12.0-16.0); Imm Gran Abs Auto 0.03 X10*3/uL (0.00-0.03); Imm Gran Pct Auto 0.5 % (0.0-0.4); Lymphocytes Absolute Auto 2.3 X10*3/uL (1.2-4.9); Mean Corpuscular HGB Conc 32.9 g/dl (31.0-35.0); Mean Corpuscular Hemoglobin 29.7 pg (27.0-33.0); Mean Corpuscular Volume 90.4 fL (80.0-98.0); NRBC Abs Auto 0.000 X10*3/uL (0.0-0.012); NRBC Pct Auto 0.0 /100WBC (0.0-0.2); Platelet Count 327 X10*3/uL (160-400); Red Blood Count 4.37 X10*6/uL (4.20-5.50); White Blood Count 6.3 X10*3/uL (4.8-10.8)
[2025-05-27 14:43] LABS: Alanine Aminotransferase 21 U/L (0-31); Albumin Level 4.3 g/dL (3.5-5.0); Alkaline Phosphatase 98 U/L (39-117); Anion Gap 11 (12-20); Aspartate Amino Transferase 25 U/L (5-31); Blood Urea Nitrogen 12 mg/dL (9-16); Calcium 9.3 mg/dL (8.4-10.2); Carbon Dioxide 26 mmol/L (22-29); Chloride 109 mmol/L (96-108); Cholesterol 215 mg/dL (<200); Estimated Glomerular Filt Rate 56; HDL Cholesterol 68 mg/dL (>40); Potassium 4.1 mmol/L (3.3-5.1); Sodium 142 mmol/L (135-145); Total Protein 7.0 g/dL (6.5-8.0); Triglycerides 74 mg/dL (<150)
[2025-05-27 14:48] LABS: Hemoglobin A1C 82.3126 umol/L; Total Hemoglobin (HGBA1C) 2242.4657 umol/L
== END 2025-05-27 09:43 | disposition home or self-care (01) ==
LOC: HO.MANLDS 09:42
PROVIDERS: Visit Provider Physician Assistant
DX: Z00.00 Encounter for general adult medical examination without abnormal findings (principal); Z13.6 Encounter for screening for cardiovascular disorders; Z13.1 Encounter for screening for diabetes mellitus
CPT/HCPCS: 36415; 80053; 80061; 82306; 83036; 84443; 85025